=== PATIENT | male | born 1975 | race Caucasian/White ===

== ENCOUNTER 2024-07-09 02:59 | Emergency (ER) | payer OTHER, SELFPAY ==
[2024-07-09] VITALS (9 sets, daily range): BP systolic 106–160; BP diastolic 66–92; PULSE 61–87; RESP 11–23; TEMP 36.6; O2SAT 96–100
--- NOTE | ~2024-07-09 | CT_ITS ---
EXAMINATION: CTA chest abdomen pelvis DATE: 07/09/2024 05:04 INDICATION: Chest pain, back pain. Rule out aortic dissection TECHNIQUE: Computed tomography angiography (CTA) of the chest was performed with 100 mL Omnipaque-350 intravenous contrast timed to evaluate the pulmonary arteries. Coronal maximum intensity projection 3D-reconstructions were created by the technologist. Automated exposure control and iterative reconst ruction technique were employed. Exam dose: 1121.65 mGy-cm total exam DLP. COMPARISON: None. FINDINGS: Heart size is within normal range. No pericardial or pleural effusion. No thoracic aortic aneurysm or dissection. No hilar or mediastinal mass lesion or lymphadenopathy. Normal size and homogeneous density of the thyroid gland. Occasional blebs of the left upper lobe. No pulmonary infiltrate or consolidation or pulmonary mass l esion. There are innumerable hepatic cysts measuring up to approximately 1.6 cm dimension. Hepatic steatosis . No gallstones or gallbladder wall thickening or pericholecystic fluid collection is evident. No bile duct or pancreatic duct dilatation. No pancreatic mass lesion or calcification. Normal splenic size. Normal morphology of the adrenal glands. No renal mass lesion or urinary tract calculus or hydroureteronephrosis. Normal caliber of the abdominal aorta. No evidence of abdominal aortic aneurysm or dissection. No int raperitoneal or retroperitoneal pelvic mass lesion or adenopathy or ascites. Mild prostate enlargement. The urinary bladder is relatively evacuated and appears unremarkable. No evidence of appendicitis. Mild left colon diverticulosis; no CT evidence of diverticulitis. No bowel obstruction, bowel wall thickening, pneumatosis or intraperitoneal free air. Old healed posterior left ninth rib fracture. No suspicious osteolytic or osteoblastic lesions. Moderately severe degenerative disc disease at L5-S1. IMPRESSION: No thoracic or abdominal aortic aneurysm or dissection Innumerable hepatic cysts Mild diverticulosis of left colon; no CT evidence of diverticulitis Moderately severe degenerative disc disease at L5-S1 Reviewed, dictated and finalized at [facility]. Reviewed, dictated and finalized at [facility]. ING ASSISTANT
--- NOTE | ~2024-07-09 | XR_ITS ---
EXAMINATION: XR chest 1V portable DATE: 07/09/2024 03:34 INDICATION: Chest pain. TECHNIQUE: A single frontal view of the chest was obtained. COMPARISON: Chest CT 07/09/2024 FINDINGS: There is mild atelectasis in the lower lung zones. No pleural effusion or pneumothorax. The heart size is normal. There is an old healed fracture of left ninth rib. IMPRESSION: 1. No acute cardiopulmonary disease. Reviewed, dictated and finalized at [facility]. RTISING ASSOCIATE
--- NOTE | 2024-07-09 03:10 | ECG_ITS ---
Test Date: 2024-07-09 03:15:21 Measurements Intervals [place] Rate: 85 P: 19 IN: 176 QRS: -9 QRSD: 106 T: 7 QT: 365 QTc: 436 Interpretive Statements SINUS RHYTHM INCOMPLETE RIGHT BUNDLE BRANCH BLOCK [90+ ms QRS DURATION, TERMINAL R IN V1/V2, 40+ ms S IN I/aVL/V4/V5/V6] ABNORMAL ECG No previous ECG available for comparison Electronically Signed On 07-09-2024 10:21:32 BUSINESS CONSULTANT by Tanner Francois M.D.
--- NOTE | 2024-07-09 03:18 | ED_ITS ---
HPI - Chest Pain General Chief Complaint: Chest Pain Stated Complaint: Heart Burn Time Seen by Provider: 07/09/24 03:18 Source: patient Mode of arrival: ambulatory Limitations: no limitations History of Present Illness HPI narrative: 49 years old white male drove himself to the ED from home complaining of upper back pain and chest pain like tightness we came up from sleep. Patient shovel the snow and had a lot of snow activities with his kids last night at 5:00 p.m.. pain get worse with breathing and certain movement. Patient smokes cigarettes, father had history of coronary artery disease/stents. Related Data Allergies Allergy/AdvReac Type Severity Reaction Status Date / Time Penicillins Allergy Unknown Unknown Verified 07/09/24 03:19 Review of Systems 2 Review of Systems: All systems reviewed & are unremarkable except as noted in HPI and below Exam 2 Narrative: General appearance: Well-developed, well-nourished Skin: Normal color Head: Normocephalic, nontraumatic Eyes: Clear conjunctiva ENT: Oropharynx normal, ears normal, nose normal Neck: Supple, nontender Chest and respiratory: Airway patent, no respiratory distress, no accessory muscle use , diffuse chest tenderness with palpation Heart: Regular rate/rhythm Abdomen: Soft, nontender, no organomegaly, quiet bowel sounds Vascular: Normal peripheral pulses, normal capillary refill. Musculoskeletal: Normal range of motion, nontender back Neurologic: Alert and oriented ?3, CRISIS COUNSELOR is normal as tested, no gross motor deficit Course Vital Signs Vital signs: Vital Signs Temperature 36.6 C 07/09/24 03:00 Pulse Rate 80 07/09/24 03:00 Respiratory Rate 20 07/09/24 03:00 Blood Pressure 160/91 H 07/09/24 03:00 Pulse Oximetry 100 07/09/24 03:00 Oxygen Delivery Room Air 07/09/24 03:00 Temperature 36.6 C 07/09/24 03:00 Pulse Rate 70 07/09/24 05:16 Respiratory Rate 16 07/09/24 05:16 Blood Pressure 130/69 07/09/24 05:16 Pulse Oximetry 98 07/09/24 05:16 Oxygen Delivery Room Air 07/09/24 03:00 MDM - Chest Pain MDM Narrative Medical decision making narrative: patient came to the ED with chest pain and upper back pain few hours after finishing shoveling the snow and playing with his kids on the snow. Pain worse with breathing and certain movement and position. Vital signs on arrival showing blood pressure of 160/91, otherwise within normal limit Physical examination showing tenderness across the chest and upper back with palpation EKG on arrival showing normal sinus rhythm with with nonspecific changes Blood workup today includes CBC, CMP, troponin, PT PTT showed WBC of 12.0 otherwise insignificant abnormality Chest x-ray showed no acute abnormality CT a chest abdomen and pelvis to rule out aortic dissection, aneurysm showed showed numerous low-density hepatic lesions. Otherwise within normal limit. Patient is aware of the hepatic lesions and been managed by hepatic physician at [place]. Copy of the CT scan report was given to the patient prior to discharge. Repeated EKG showed sinus bradycardia otherwise no acute abnormalities. Differential Diagnosis Differential diagnosis: Likely other Medical Records Data Attestation: I reviewed the patient's medical records. Lab Data Attestation: I reviewed the patient's lab results. 07/09/24 03:29 07/09/24 03:29 Labs: Lab Results 07/09/24 07/09/24 07/09/24 Range/Units 03:28 03:29 06:08 WBC 12.0 H (4.8-10.8) K/mm3 RBC 4.88 (4.70-6.10) M/mm3 Hgb 15.0 (14.0-18.0) g/dL Hct 43.5 (40.0-54.0) % MCV 89.1 (78.0-102.0) fL MCH 30.7 (27.0-31.0) pg MCHC 34.5 (32-36) g/dL RDW 14.2 (11.6-14.4) % Plt Count 219 (150-420) K/mm3 MPV 9.3 (8.7-11.0) fl Immature Gran % (Auto) 0.4 H (0.0-0.0) % Neut % (Auto) 78.6 H (50.0-70.0) % Lymph % (Auto) 13.2 L (18.0-42.0) % [place] % (Auto) 6.8 (2.0-11.0) % Eos % (Auto) 0.7 L (1.0-6.0) % Baso % (Auto) 0.3 (0.0-1.0) % Lymph # (Auto) 1.58 (1.10-4.50) K/mm3 [place] # (Auto) 0.82 (0.10-0.90) K/mm3 Eos # (Auto) 0.08 (0.02-0.50) K/mm3 Baso # (Auto) 0.04 (0.00-0.10) K/mm3 Abs Immat Gran (auto) 0.05 H (0.00-0.00) K/mm3 Absolute Neuts (auto) 9.43 H (1.70-7.20) K/mm3 Absolute Nucleated RBC 0.00 (0.00-0.00) K/mm3 Nucleated RBC % 0.0 (0-0.0) % PT 10.3 (9.50-12.1) Seconds INR 0.9 APTT 28.8 (23.9-30.70) Sec Sodium 142 (136-145) mmol/L Potassium 3.8 (3.5-5.1) mmol/L Chloride 101 (98-108) mmol/L Carbon Dioxide 30 (21-32) mmol/L Anion Gap 11 (4-12) mmol/L BUN 10 (7-18) mg/dL Creatinine 1.17 (0.70-1.30) mg/dL Estim Creat Clear Calc 72 ml/min Estimated GFR > 60 (59 - ) Glucose 114 H (70-99) mg/dL Calculated Osmolality 294 (285-295) mOsm/kg Calcium 9.4 (8.5-10.1) mg/dL Total Bilirubin 0.4 (0.00-1.00) mg/dL AST 21 (15-37) U/L ALT 51 (16-63) U/L Alkaline Phosphatase 75 (46-116) U/L Troponin I 6.8 6.5 (0.00-60.4) ng/L NT-Pro-B Natriuret Pep 27 (0-125) pg/mL Total Protein 7.2 (6.4-8.2) g/dL Albumin 4.1 (3.4-5.0) g/dL Imaging Data My impression: chest x-ray showed no acute abnormalities Radiologist's impression: CTA chest, abdomen and pelvis showed No comparison imaging available. Numerous low-density hepatic lesions measuring up to 1.3 cm within the right hepatic dome. Consider liver CT or MRI and/or comparison with prior imaging for further evaluation. No abdominal aortic aneurysm or dissection. Mild calcified atherosclerosis. ECG Data EKG #1: Attestation: I personally reviewed and interpreted this ECG as follows: ECG completion date: 07/09/24 Interpretation: normal sinus rhythm at 85 beats per minute, poor R-wave progression, septal myocardial infarction of indeterminate age, no old EKG available for comparison Discharge Plan Discharge Clinical Impression: Chest pain, Hepatic lesion Patient Disposition: Home, Self-Care Condition: Stable Instructions: Chest Pain (ED) Additional Instructions: Return if symptoms are worsening , call your family physician for appointment, take Tylenol as as needed for aches and pain, continue home medications. Follow-up with your family physician for further evaluation of the hepatic lesions. A copy of the CT scan is at that she 2 year discharge paper. Patient Language: Iraqi Prescriptions: New cyclobenzaprine 10 mg tablet 10 mg PO TID PRN (Reason: muscle spasm) Qty: 20 0RF naproxen [Naprosyn] 500 mg tablet 500 mg PO BID PRN (Reason: pain) Qty: 14 0RF Follow-up/Referrals: Carla,MD Jemal [Primary Care Provider] -
[2024-07-09] MEDS: ASPIRIN 81 MG CHEWABLE TABLET 324 MG PO (03:24)
[2024-07-09] MEDS: NITROGLYCERIN SL 0.4 MG TABLET SUBLINGUAL (03:25)
[2024-07-09 03:33] LABS: Basophils Absolute Auto 0.04 K/mm3 (0.00-0.10); Basophils Percent Auto 0.3 % (0.0-1.0); Eosinophils Absolute Auto 0.08 K/mm3 (0.02-0.50); Eosinophils Percent Auto 0.7 % (1.0-6.0); Hematocrit 43.5 % (40.0-54.0); Immature Granulocyte Absolute 0.05 K/mm3 (0.00-0.00); Immature Granulocyte Percent A 0.4 % (0.0-0.0); Lymphocytes Absolute Auto 1.58 K/mm3 (1.10-4.50); Lymphocytes Percent Auto 13.2 % (18.0-42.0); Mean Corpuscular HGB Conc 34.5 g/dL (32-36); Mean Corpuscular Hemoglobin 30.7 pg (27.0-31.0); Mean Corpuscular Volume 89.1 fL (78.0-102.0); Mean Platelet Volume 9.3 fl (8.7-11.0); Monocytes Absolute Auto 0.82 K/mm3 (0.10-0.90); Monocytes Percent Auto 6.8 % (2.0-11.0); Neutrophils Absolute Auto 9.43 K/mm3 (1.70-7.20); Neutrophils Percent Auto 78.6 % (50.0-70.0); Platelet Count Result 219 K/mm3 (150-420); Red Blood Count 4.88 M/mm3 (4.70-6.10); Red Cell Distribution Width 14.2 % (11.6-14.4)
[2024-07-09] MEDS: ONDANSETRON INJ 4 MG/2 ML VIAL IV PUSH (03:44)
[2024-07-09] MEDS: MORPHINE SULFATE (*CRX) 4 MG/ML INJ IV PUSH (03:45)
[2024-07-09 03:49] LABS: INR 0.9; Partial Thromboplastin Time 28.8 Sec (23.9-30.70); Prothrombin Time 10.3 Seconds (9.50-12.1)
[2024-07-09 03:57] LABS: Alanine Aminotransferase 51 U/L (16-63); Albumin Level 4.1 g/dL (3.4-5.0); Alkaline Phosphatase 75 U/L (46-116); Anion Gap 11 mmol/L (4-12); Aspartate Amino Transferase 21 U/L (15-37); Bilirubin,Total 0.4 mg/dL (0.00-1.00); Blood Urea Nitrogen 10 mg/dL (7-18); Calcium 9.4 mg/dL (8.5-10.1); Carbon Dioxide 30 mmol/L (21-32); Chloride 101 mmol/L (98-108); Estimated CRCL calculation 72 ml/min; Estimated Glomerular Filt Rate > 60; Glucose 114 mg/dL (70-99); NT Pro B Type Natriuretic Pept 27 pg/mL (0-125); Osmolality Calculated 294 mOsm/kg (285-295); Potassium 3.8 mmol/L (3.5-5.1); Sodium 142 mmol/L (136-145); Total Protein 7.2 g/dL (6.4-8.2); Troponin I 6.8 ng/L (0.00-60.4)
[2024-07-09] MEDS: fentaNYL CITRATE INJ (*CRX) 100 MCG/2 ML VIAL 50 MCG IV PUSH (04:38)
--- NOTE | 2024-07-09 05:05 | PC.NURSE ---
Pt resting, pain is better, continuing to monitor and await CTA report.
--- NOTE | 2024-07-09 05:58 | PC.NURSE ---
Pt sleeping, VSS, 2nd trop level to be drawn, will await results, Pt informed on POC, VSS, resting comfortably.
[2024-07-09 06:29] LABS: Troponin I 6.5 ng/L (0.00-60.4)
--- NOTE | 2024-07-09 06:45 | ECG_ITS ---
Test Date: 2024-07-09 06:50:56 Measurements Intervals [place] Rate: 51 P: 32 [place]: 159 QRS: 63 QRSD: 105 T: 44 QT: 404 QTc: 375 Interpretive Statements SINUS BRADYCARDIA POSSIBLE RIGHT VENTRICULAR CONDUCTION DELAY [RSR (QR) IN V1/V2] ABNORMAL ECG Compared to ECG 07/09/2024 03:15:21 Sinus rhythm no longer present Incomplete right bundle-branch block no longer present Electronically Signed On 07-09-2024 10:21:47 URGENT CARE PHYSICIAN ASSISTANT by Tanner Francois M.D.
== END 2024-07-09 07:10 | disposition home or self-care (01) ==
PROVIDERS: Emergency Provider Emergency Medicine; PCP Family Medicine
DX: R07.9 Chest pain, unspecified (principal); K76.9 Liver disease, unspecified
CPT/HCPCS: 36415; 71045; 71275; 74174; 80053; 83880; 84484; 85025; 85610; 85730; 93005; 96374; 96375; 96376; 99284; A9270; J2270; J2405; J3010; Q9967